=== PATIENT | female | born 1945 | race Caucasian/White ===

== ENCOUNTER 2016-04-26 13:15 | Outpatient (CLI) | payer OTHER ==
[~2016-04-26 13:15] MED LIST: COLCRYS0.6 MG; OMEPRAZOLE10 MG; PAROXETINE HCL10 MG PO
--- NOTE | 2016-04-26 18:00 | DIAGNOSTIC IMAGING REPORT ---
PROCEDURE: XR ANKLE 3 OR 4 VIEWS - LEFT INDICATION: LT ANKLE POST OP ORIF TECHNIQUE: Four views. COMPARISON: Left ankle x-ray 04/08/2016 FINDINGS: Interval placement of a single lag screw through the medial malleolar fracture. Placement of side plate and multiple screws fixating the distal fibula fracture. There is widening of the ankle mortise medially. Bilateral skin alexei. Single screw in the first metatarsal. Posterior splint in place. IMPRESSION: 1. Bimalleolar ORIF with widening of the ankle mortise medially.
== END 2016-04-26 23:00 ==
LOC: XR SRH 13:15
DX: Z47.89 Encounter for other orthopedic aftercare (principal)